=== PATIENT | male | born 1970 | race Asian ===

== ENCOUNTER 2021-12-14 06:19 | Day surgery (SDC) | payer MEDICAID ==
[~2021-12-14] VITALS: Ht 162.6 cm; Wt 63.0 kg
[2021-12-14] VITALS (16 sets, daily range): BP systolic 96–119; BP diastolic 45–79
[2021-12-14] MEDS ORDERED: normal saline 1000ml 1,000 ML IV SCH (06:35)
[2021-12-14] MEDS ORDERED: NO HOME MEDS (07:08)
[2021-12-14 07:12] LABS: EOSINOPHILS # (AUTO) 0.8 X10'3 (0-0.9); EOSINOPHILS % (AUTO) 15.5 % (0-6); HEMATOCRIT 46.9 % (42.0-52.0); LYMPHOCYTES # (AUTO) 1.8 X10'3 (1.1-4.8); LYMPHOCYTES % (AUTO) 36.6 % (21-51); MEAN CORPUSCULAR HEMOGLOBIN 33.9 PG (27.0-31.0); MEAN CORPUSCULAR HGB CONC 34.2 g/dL (33.0-36.5); MEAN CORPUSCULAR VOLUME 99.3 FL (78-98); MEAN PLATELET VOLUME 8.9 FL (7.4-10.4); MONOCYTES # (AUTO) 0.7 X10'3 (0-0.9); MONOCYTES % (AUTO) 13.8 % (2-12); NEUTROPHILS # (AUTO) 1.6 X10'3 (1.8-7.7); NEUTROPHILS % (AUTO) 33.1 % (42-75); PLATELET COUNT 155 X10'3 (140-440); RED BLOOD COUNT 4.72 X10'6 (4.70-6.10); RED CELL DISTRIBUTION WIDTH 13.5 % (11.5-14.5); WHITE BLOOD COUNT 4.9 X10'3 (4.5-11.0)
[2021-12-14] MEDS ORDERED: midazolam 1 mg/ML 2ml injection ONE (08:38)
[2021-12-14] MEDS ORDERED: fentaNYL/PF 50MCG/1 ML 2ML syringe ONE (08:38)
[2021-12-14] MEDS ORDERED: gelatin sponge, absorbable (Gelfoam 12-7MM) sponge TP ONE (08:53)
[2021-12-14] MEDS ORDERED: LIDOcaine 1% 30ml preserv. free vial ONE (08:54)
== END 2021-12-14 11:35 | disposition home or self-care (01) ==
LOC: SSTAY O 06:19
PROVIDERS: ATTEND Preventive Medicine Aerospace Medicine
DX: K76.89 Other specified diseases of liver (principal); K74.02 Hepatic fibrosis, advanced fibrosis; K74.60 Unspecified cirrhosis of liver; E83.19 Other disorders of iron metabolism; K73.8 Other chronic hepatitis, not elsewhere classified
CPT/HCPCS: 36415; 47000; 77012; 85025; 99152; 99153; J2250; J3010; J3490; J7030